=== PATIENT | female | born 1995 | race Caucasian/White ===

== ENCOUNTER 2021-04-14 00:39 | Emergency (ER) | payer OTHER, SELFPAY ==
[2021-04-14 00:56] VITALS: BP 128/79; PULSE 96; RESP 18; TEMP 36.8; O2SAT 98
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
[2021-04-14 01:52] VITALS: PULSE 99; RESP 16; O2SAT 99
== END 2021-04-14 01:52 | disposition home or self-care (01) ==
PROVIDERS: Emergency Provider Emergency Medicine
DX: S30.810A Abrasion of lower back and pelvis, initial encounter (principal); V79.9XXA Bus occupant (driver) (passenger) injured in unspecified traffic accident, initial encounter
CPT/HCPCS: 99281

== ENCOUNTER → 2024-09-18 10:21 | Outpatient (BNVA) | payer BC, SELFPAY | PROVIDERS: PCP Electrodiagnostic Medicine; Visit Provider Student in an Organized Health Care Education/Training Program | DX: M25.562 Pain in left knee (principal); S83.8X1A Sprain of other specified parts of right knee, initial encounter; X50.9XXA Other and unspecified overexertion or strenuous movements or postures, initial encounter; Z01.89 Encounter for other specified special examinations | CPT/HCPCS: 73560; 73565 ==

== ENCOUNTER 2024-09-24 06:55 | Outpatient (CLI) | payer BC, SELFPAY ==
--- NOTE | 2024-09-24 07:15 | MR_ITS ---
WS: [id number] MRI RIGHT KNEE, with and without contrast HISTORY: rule out meniscus tear Pre and postcontrast imaging performed through the RIGHT knee. MultiHance 14 mL. COMPARISON: Radiograph 09/18/2024 Anterior cruciate ligament: Intact. Posterior cruciate ligament: Intact. Medial collateral ligament: Mild heterogeneity of the MCL. No adjacent fluid. Posterior lateral corner structures: Small amount of fluid along the course of the fibular collateral ligament and the popliteus tendon. No tear. Mild sprain of the fibular collateral ligament. Medial menisci: Intact. Normal signal, size and shape. Lateral meniscus: Intermediate signal in the anterior horn. Smudgy like signal with no definite tear. There is intermediate signal in the posterior third of the posterior horn towards the meniscal root. No definite meniscal tears are identified. There is partial extrusion of the meniscus from the joint line extending cephalad from the joint. Extensor mechanism: Distal quadriceps tendon and patellar tendons are intact. Fluid and soft tissue: No joint effusion. No Downey's cyst. Osseous and articular structures: Patellofemoral compartment: Very slight lateral tilting of the patella. Very mild chondromalacia. No marrow edema. Patellar retinaculum are intact. Medial compartment: Mild narrowing of the medial compartment and mild chondromalacia. No marrow edema or subchondral cysts. Lateral compartment: Focal marrow edema in the lateral femoral condyle and the lateral tibial plateau. No fracture. Moderate narrowing of the lateral compartment with moderate chondromalacia. No subchondral cyst. Fibular head is intact. Postcontrast imaging is also been performed. No evidence for osteomyelitis. No enhancement of the joint. No mass. MR/MR knee RT wo/w con [id number] IMPRESSION: 1. Focal marrow edema in the lateral femoral condyle and the lateral tibial pl [place] with moderate narrowing of the lateral joint space. Contusion type patter n. 2. Intermediate signal in the anterior and posterior horns but no definite men iscal tear is identified. There is partial extrusion of the meniscus from the j oint. 3. Mild sprain fibular collateral ligament. 4. No joint effusion. 5. Mild patellofemoral and medial compartment narrowing and chondromalacia.
[2024-09-24] MEDS: gadobenate dimeglumine 20 mL vial IV (07:50)
== END 2024-09-24 06:56 | disposition home or self-care (01) ==
PROVIDERS: PCP Electrodiagnostic Medicine; Visit Provider Student in an Organized Health Care Education/Training Program
DX: S83.421A Sprain of lateral collateral ligament of right knee, initial encounter (principal); X58.XXXA Exposure to other specified factors, initial encounter; M94.261 Chondromalacia, right knee
CPT/HCPCS: 73723

== ENCOUNTER 2024-10-16 11:01 | Outpatient (CLI) | payer BC, SELFPAY | END 2024-10-16 11:02 | disposition home or self-care (01) | LOC: SPT 11:01 | PROVIDERS: PCP Electrodiagnostic Medicine; Visit Provider Student in an Organized Health Care Education/Training Program | DX: Z46.89 Encounter for fitting and adjustment of other specified devices (principal); S83.8X1D Sprain of other specified parts of right knee, subsequent encounter; X58.XXXD Exposure to other specified factors, subsequent encounter | CPT/HCPCS: L1812 ==